=== PATIENT | male | born 1975 | race Caucasian/White ===

== ENCOUNTER 2016-09-22 22:40 | Emergency (ER) | payer OTHER ==
[~2016-09-22] VITALS: Ht 172.7 cm; Wt 72.7 kg
[~2016-09-22 22:40] MED LIST: METH500T5 PO; METO-301 PO; OMEP40CA36 PO; PRE20 PO; VARE1TAB21 PO
[2016-09-22 22:45] VITALS: BP 129/49; PULSE 104; RESP 22; O2SAT 96
[2016-09-22 22:56] LABS: BASOPHILS % (AUTO) 0.5 % (0-3); EOSINOPHILS % (AUTO) 2.6 % (0-5); MONOCYTES % (AUTO) 10.7 % (4-12); Mean Corpuscular Hemoglobin 32.4 pg (27.0-35.0); Mean Corpuscular Volume 90.8 fL (81-100); NEUTROPHILS % (AUTO) 54.9 % (40-74); Platelet Count 290 bil/L (150-400)
--- NOTE | 2016-09-22 23:09 | ED.REPORT ---
HPI-Chest Pain Under 40 Date of Service Sep 22, 2016 ED Provider: Cosmo Hernandez MD This is a 41 year old male with a history of with a history of hiatal hernia, mastoiditis, GERD, and Wolfgang's esophagus presenting to the emergency department via EMS complaining of substernal chest pain that began 1.5 hours ago. Chest pain is now resolved but radiated to the back and bilateral shoulders. Episode was of sudden onset and lasted approximately one hour. En route, given nitro which provided complete relief. Denies fever, chills, nausea , vomiting, diaphoresis, dizziness, lightheadedness, abdominal pain, diarrhea, constipation, or dysuria at this time. States similar is not similar to those with GERD. Nursing Notes Stated Complaint: CHEST PAIN Chief Complaint: Chest Pain Nursing Notes Reviewed: Yes Allergies: Coded Allergies: No Known Allergies (Verified Allergy, Unknown, 02/08/16) Scheduled Methylcellulose (Citrucel) 500 Mg Tablet 1,000 MG PO DAILY Metoclopramide (Reglan) 10 Mg Tablet 10 MG PO QID Omeprazole (Omeprazole) 40 Mg Capsule.dr 40 MG PO BID Prednisone (PredniSONE) 20 Mg Tablet 20 MG PO TID Varenicline Tartrate (Chantix) 1 Each Tab.ds.pk 1 EACH PO DAILY General Time Seen by MD: 23:08 Chief Complaint Chest pain Hx Obtained From: Patient Arrived By: Ambulance Sudden in Onset?: Yes Onset Occurred: Just prior to arrival Symptom Duration: Since onset Severity: Current: No pain currently Severity: Maximum: Moderate Pertinent Negative: Pt denies other symptoms Recent Healthcare: No recent doctor visit, No recent hospitalization Similar Sx Previous: No Risk Factors )( CAD Risk Stratification Hypertension SmokingNo Amphetamine, No Cocaine, No Diabetes mellitus, No Family history, No Hyperlipidemia, No Known CAD Risk factors reviewed Past Medical History Past Medical History hiatal hernia mastoiditis in 2013 Wolfgang's esophagus Reports: GERD Past Surgical History denies Smoking History Current Every Day Smoker Social History Former heavy drinker, 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 Physical Exam Initial Vital Signs Vital Signs (First) Date Time Temp Pulse Resp B/P Pulse Ox O2 Delivery O2 Flow Rate FiO2 09/22/16 22:45 36.5 104 22 129/49 96 Room Air Initial VS: Reviewed, Vital signs abnormal Head / Eyes: Atraumatic, Normocephalic, PERRL ENT: Mucous membranes moist, Conjunctiva normal, No scleral icterus Neck: Supple, Non-tender, Full range of motion Abdomen / GI: Soft, Non-tender, No guarding, No rebound, No distention Extremities: Vascular intact, Neuro intact, No swelling, No tenderness Skin: Warm, Dry, No cyanosis Neurologic: Alert, Oriented, Nonfocal Psychiatric: Mood/affect normal, Behavior normal, Normal thought content General/Constitutional: Awake, Alert Respiratory / Chest: Breath sounds NL, Breath sounds = bilat, No respiratory distress, No rhonchi, No wheezing Cardiovascular: Heart rate NL, Regular rhythm, Heart sounds NL, No gallop, No murmurs, No rubs Interpretation & Diagnostics Lab Results Interpretation Result Diagram: 09/22/16224409/22/162244 Test 09/22/16 22:45 White Blood Count 9.2th/mm3 (3.8-10.1) Red Blood Count 4.91mil/mm3 (4.40-5.80) Hemoglobin 15.9g/dL (13.8-17.2) Hematocrit 44.6% (41.0-50.0) Mean Corpuscular Volume 90.8fL (81-100) Mean Corpuscular Hemoglobin 32.4pg (27.0-35.0) Mean Corpuscular Hemoglobin Concent 35.7% (32.0-37.0) Red Cell Distribution Width 12.9% (12.3-15.4) Platelet Count 290bil/L (150-400) Neutrophils (%) (Auto) 54.9% (40-74) Lymphocytes (%) (Auto) 30.8% (14-46) Monocytes (%) (Auto) 10.7% (4-12) Eosinophils (%) (Auto) 2.6% (0-5) Basophils (%) (Auto) 0.5% (0-3) Sodium Level 143mEq/L (134-144) Potassium Level 3.3mEq/L (3.5-5.2) Chloride Level 100mEq/L (97-108) Carbon Dioxide Level 22mmol/L (18-29) Blood Urea Nitrogen 23mg/dL (6-20) Creatinine 0.75mg/dL (0.76-1.27) Estimat Glomerular Filtration Rate 123mL/min (>59) Glucose Level 88mg/dL (60-99) Calcium Level 8.9mg/dL (8.5-10.1) Magnesium Level 2.7mg/dL (1.6-2.6) Total Bilirubin 0.2mg/dL (0.0-1.2) Aspartate Amino Transf (AST/SGOT) 26U/L (0-50) Alanine Aminotransferase (ALT/SGPT) 33U/L (0-44) Alkaline Phosphatase 53U/L (25-150) Troponin T 0.010ug/L (0.0-0.011) Total Protein 7.0g/dL (6.4-8.4) Albumin 4.4g/dL (3.4-5.0) Lab values outside NL range: no clinical significance. Lab Results Interpretation: Single troponin negative. X-Ray Chest Interpretation Interpretation / Wet Read by: Wet read ED physician NL X-Ray Chest Findings: No infiltrate, No acute disease Re-Eval/Medical Decision Med Decision/Clinical Course 41-year-old male who has no known history of coronary artery disease but does smoke and having high blood pressure. Family history is unknown. He had onset of chest pain about 2 hours ago. Initial EKG has some repolarization after abnormalities but no distinct ST or T-wave changes. Initial troponin is negative. Repeat EKG was basically unchanged with the exception of some intermittent left bundle branch block. EKGs were reviewed with Dr. Del Valle. 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 He understands the consequences of this and AMA paperwork was accomplished. Dr. Del Valle will see him early in the week and likely arrange a stress test. He understands that he can return at any time or call me for concerns.. Re-Evaluation/Progress : Time of Eval: 00:00 Re-Evaluation/Progress Note: Discussed lab results and need for repeat labs, would like to leave AMA Consultation : Referral / Consult Name: Madelin Del Valle MD Consulted With: Cardiology Call Returned at: 00:16 Evs Manager: Agrees with eval, Agrees with plan Counseled Regarding: Diagnosis, Lab results, Need for follow-up, Need for admission Discharge & Departure Primary Impression: Chest pain Chest pain type: unspecified Qualified Code: R07.9 - Chest pain, unspecified Disposition: AGAINST MEDICAL ADVICE Discharge Condition All VS Reviewed: Yes Condition: Stable Patient Instructions: Chest Pain (ED) Additional Instructions: Your situation sounds bothersome, and it is possible that you have an area of the hearth it is not getting enough oxygen (a narrowed blood vessel). It does not appear at this time that you have a heart attack in progress, but we would need more time to determine that for sure. Your EKG is bothersome, although does not say for sure that there is a problem. As you requested, we will discharge her without further evaluation. If, however, you have further chest pain you need to get back to the emergency room immediately for further evaluation. Your case was discussed with Dr. Del Valle and she would be willing to see you in the clinic early this week. As we discussed, you are signing out against our medical advice (AMA). This means that you are bypassing the safest and most thorough way for us to care for you. However, it does not mean that you cannot come back for further evaluation. If you have questions or concerns you can call me between the hours of 9 PM and 6 AM at [phone]. The emergency room. Referrals: NOPCP (PCP) Scribe Attestation Portions of this note were transcribed by Nitin Montano. I, Dr. Hernandez personally performed the history, physical exam and medical decision-making; I reviewed and confirmed the accuracy of the information in the transcribed note. Signed by: carrol Damon. 09/22/2016, 06:00. Cosmo Hernandez MD Sep 22, 2016 23:09 NITIN MONTANO Sep 22, 2016 23:12
[2016-09-22 23:40] VITALS: BP 190/55; PULSE 92; RESP 23; O2SAT 93
[2016-09-22 23:40] LABS: Magnesium 2.7 mg/dL (1.6-2.6); TROPONIN T 0.01 ug/L (0.0-0.011)
[2016-09-23 00:30] VITALS: BP 110/60; PULSE 84; RESP 20; O2SAT 94
--- NOTE | 2016-09-23 08:41 | DRSVH ---
PROCEDURE: X-RAY CHEST ONE VIEW, PORTABLE ([id number]) INDICATIONS: cp TECHNIQUE: One view of the chest was acquired. COMPARISON: None. FINDINGS: Surgical changes and devices: None. Lungs and pleura: No pleural effusions or pneumothorax. Lungs are clear. Mediastinum: Mediastinal contours appear normal. Heart size is normal. Bones and chest wall: No suspicious bony lesions. Overlying soft tissues appear unremarkable. IMPRESSION: No acute cardiopulmonary disease. Dictated by: Catracho Solo [facility] Interpreted: Ingrid Rodriguez MD on 09/23/2016 at 8:40 Transcribed by: EV on 09/23/2016 at 8:41 Approved by: Ingrid Rodriguez MD, PhD on 09/23/2016 at 8:45
== END 2016-09-23 00:30 | disposition left against medical advice (07) ==
LOC: EDBD 22:40 → SED 22:40
DX: R07.2 Precordial pain (principal); K21.9 Gastro-esophageal reflux disease without esophagitis; F17.200 Nicotine dependence, unspecified, uncomplicated; I10 Essential (primary) hypertension; I44.7 Left bundle-branch block, unspecified